=== PATIENT | male | born 1955 | race Caucasian/White ===

== ENCOUNTER 2021-12-09 11:43 | Outpatient (CLI) | payer MEDICARE ==
[2021-12-09 12:14] LABS: BASOPHILS # (AUTO) 0.1 10^3/uL (0.0-0.1); BASOPHILS % (AUTO) 1.5 %; EOSINOPHILS # (AUTO) 0.4 10^3/uL (0.0-0.7); EOSINOPHILS % (AUTO) 8.3 %; HCT - HEMATOCRIT 34.4 % (42.0-52.0); HGB - HEMOGLOBIN 12.1 g/dL (14.0-18.0); LYMPHOCYTES # (AUTO) 0.9 10^3/uL (1.5-3.5); LYMPHOCYTES % (AUTO) 17.7 %; MEAN CORPUSCULAR HGB CONC 35.2 g/dL (32.0-36.0); MEAN CORPUSCULAR VOLUME 99.4 fL (80.0-94.0); MEAN PLATELET VOLUME 9.5 fL (7.4-11.4); MONOCYTES # (AUTO) 0.4 10^3/uL (0.0-1.0); MONOCYTES % (AUTO) 8.3 %; NEUTROPHILS # (AUTO) 3.1 10^3/uL (1.5-6.6); NEUTROPHILS % (AUTO) 63.8 %; PLT - PLATELET COUNT 215 10^3/uL (130-450); RED BLOOD COUNT 3.46 10^6/uL (4.70-6.10); RED CELL DISTRIBUTION WIDTH 12.8 % (12.0-15.0); WHITE BLOOD COUNT 4.8 x10^3/uL (4.8-10.8)
[2021-12-09 12:27] LABS: ALBUMIN 4.6 g/dL (3.2-5.5); ALBUMIN/GLOBULIN RATIO 1.5 (1.0-2.2); ALKALINE PHOSPHATASE 71 IU/L (42-121); ALT ALANINE AMINOTRANSFERASE 33 IU/L (10-60); AST ASPARTATE AMINOTRANSFERASE 34 IU/L (10-42); BILIRUBIN,TOTAL 1.2 mg/dL (0.2-1.0); BUN - BLOOD UREA NITROGEN 34 mg/dL (6-20); CALCIUM 10.2 mg/dL (8.5-10.3); CARBON DIOXIDE - CO2 24 mmol/L (21-32); CHLORIDE 104 mmol/L (101-111); CHOL/HDL RATIO 2.9 (<5.0); CHOLESTEROL 186 mg/dL; GFR - MDRD 75 (>89); GLUCOSE 102 mg/dL (70-100); HDL CHOLESTEROL 65 mg/dL; LDL CHOLESTEROL,CALCULATED 89 mg/dL; LDL/HDL RATIO 1.4 (<3.6); POTASSIUM 4.4 mmol/L (3.5-5.0); SODIUM 139 mmol/L (135-145); TOTAL PROTEIN 7.7 g/dL (6.7-8.2); TRIGLYCERIDES 158 mg/dL; VLDL CHOLESTEROL 32 mg/dL
== END 2021-12-09 11:44 | disposition home or self-care (01) ==
LOC: LAB 11:43
PROVIDERS: ATTEND Hospitalist
DX: I10 Essential (primary) hypertension (principal); E78.2 Mixed hyperlipidemia; Z85.46 Personal history of malignant neoplasm of prostate
CPT/HCPCS: 36415; 80053; 80061; 83721; 84153; 85025

== ENCOUNTER 2023-09-30 08:17 | Outpatient (CLI) | payer MEDICARE ==
[2023-09-30 08:35] LABS: BASOPHILS % (AUTO) 0.7 %; EOSINOPHILS % (AUTO) 0.2 %; HCT - HEMATOCRIT 31.7 % (42.0-52.0); HGB - HEMOGLOBIN 10.7 g/dL (14.0-18.0); LYMPHOCYTES # (AUTO) 0.9 10^3/uL (1.5-3.5); LYMPHOCYTES % (AUTO) 21.4 %; MEAN CORPUSCULAR HEMOGLOBIN 36.1 pg (27.0-31.0); MEAN CORPUSCULAR HGB CONC 33.8 g/dL (32.0-36.0); MEAN CORPUSCULAR VOLUME 107.1 fL (80.0-94.0); MEAN PLATELET VOLUME 9.8 fL (7.4-11.4); MONOCYTES # (AUTO) 0.3 10^3/uL (0.0-1.0); MONOCYTES % (AUTO) 6.7 %; NEUTROPHILS # (AUTO) 2.8 10^3/uL (1.5-6.6); NEUTROPHILS % (AUTO) 69.8 %; PLT - PLATELET COUNT 257 10^3/uL (130-450); RED BLOOD COUNT 2.96 10^6/uL (4.70-6.10); RED CELL DISTRIBUTION WIDTH 14.1 % (12.0-15.0)
[2023-09-30 08:44] LABS: ALBUMIN/GLOBULIN RATIO 1.2 (1.0-2.2); CALCIUM 9.7 mg/dL (8.5-10.3); CREATININE 1.3 mg/dL (0.6-1.3); POTASSIUM 3.9 mmol/L (3.5-4.5); TOTAL PROTEIN 7.3 g/dL (6.4-8.9)
[2023-09-30 09:00] LABS: MAGNESIUM 0.9 mg/dL (1.7-2.3); THYROID STIMULATING HORMONE 2.81 uIU/mL (0.34-5.60)
== END 2023-09-30 08:18 | disposition home or self-care (01) ==
LOC: LAB 08:17
PROVIDERS: ATTEND Nurse Practitioner
DX: R68.83 Chills (without fever) (principal)
CPT/HCPCS: 36415; 80053; 83735; 84439; 84443; 84481; 85025

== ENCOUNTER 2023-09-30 09:39 | Emergency (ER) | payer MEDICARE ==
--- NOTE | 2023-09-30 11:44 | ED Physician Documentation ---
History of Present Illness - Stated complaint Stated Complaint: LOW MAGNESIUM - Chief complaint Chief Complaint: General - History obtained from History obtained from: Patient, Family - Additonal information Additional information: He has a history of hypertension and gout. He was seen in the clinic yesterday. His symptoms necessitating that visit are quite nonspecific. He has just been feeling off for the last few days in the middle night will wake up with shaking chills. He had 1 loose stool last night but no overt diarrhea. No fevers. No cough. They did labs and his magnesium level 0.9 and he was referred here. he has a history of prostate cancer with prostatectomy about 5 years ago. He does not take diuretics. No GI fluid losses. PD PAST MEDICAL HISTORY - Past Medical History Past Medical History: Yes Cardiovascular: Hypertension, High cholesterol Other Past Medical History: gout - Past Surgical History Ortho: Other - Present Medications Home Medications: Ambulatory Orders Medication Instructions Recorded Confirmed Amoxicillin 1,000 mg PO BID #20 cap 09/30/23 Azithromycin [Zithromax] 1 tab PO DAILY #4 tab 09/30/23 - Allergies Allergies/Adverse Reactions: Allergies Allergy/AdvReac Type Severity Reaction Status Date / Time No Known Drug Allergies Allergy Verified 09/30/23 09:57 - Social History Does the pt smoke?: No Smoking Status: Never smoker Does the pt drink ETOH?: Yes ETOH Use: Liquor Does the pt have substance abuse?: No - Immunizations Immunizations are current?: Yes PD ED PE NORMAL - Vitals Vital signs reviewed: Yes - General General: Alert and oriented X 3, No acute distress - Neck Neck: Supple, no meningeal sign - Cardiac Cardiac: RRR, No murmur - Respiratory Respiratory: No respiratory distress, Clear bilaterally - Abdomen Abdomen: Normal bowel sounds, Soft, Non tender - Derm Derm: Normal color, Warm and dry - Extremities Extremities: No edema, No calf tenderness / cord - Neuro Neuro: Alert and oriented X 3 Eye Opening: Spontaneous Motor: Obeys Commands Verbal: Oriented GCS Score: 15 Results - Vitals Vitals: Vital Signs - 24 hr 09/30/23 09/30/23 09/30/23 09:57 11:38 13:06 Temperature 36.5 C Heart Rate 88 79 74 Respiratory 16 24 18 Rate Blood Pressure 103/64 116/75 102/67 O2 Saturation 96 99 97 Oxygen O2 Source Room air - Labs Labs: Laboratory Tests 09/30/23 09/30/23 12:00 13:05 Urine Color YELLOW Urine Clarity CLEAR Urine pH 5.5 Ur Specific [place] 1.010 Urine Protein NEGATIVE Urine Glucose (UA) NEGATIVE Urine Ketones NEGATIVE Urine Occult Blood NEGATIVE Urine Nitrite NEGATIVE Urine Bilirubin NEGATIVE Urine Urobilinogen 0.2 (NORMAL) Ur Leukocyte Esterase NEGATIVE Ur Microscopic Review NOT INDICATED Urine Culture Comments NOT INDICATED Nasal Adenovirus (PCR) NOT DETECTED Nasal B. parapertussis DNA (PCR) NOT DETECTED Nasal Coronavir 229E PCR NOT DETECTED Nasal Coronavir HKU1 PCR NOT DETECTED Nasal Coronavir NL63 PCR NOT DETECTED Nasal Coronavir OC43 PCR NOT DETECTED Nasal Enterovir/Rhinovir PCR NOT DETECTED Nasal Influenza B PCR NOT DETECTED Nasal Influenza A PCR NOT DETECTED Nasal Parainfluen 1 PCR NOT DETECTED Nasal Parainfluen 2 PCR NOT DETECTED Nasal Parainfluen 3 PCR NOT DETECTED Nasal Parainfluen 4 PCR NOT DETECTED Nasal RSV (PCR) NOT DETECTED Nasal B.pertussis DNA PCR NOT DETECTED Nasal C.pneumoniae (PCR) NOT DETECTED Robert Human Metapneumo PCR NOT DETECTED Nasal M.pneumoniae (PCR) NOT DETECTED Nasal SARS-CoV-2 (PCR) NOT DETECTED - Rads (name of study) Single view chest x-ray demonstrates patchy right-sided pneumonia, could be viral or bacterial Relevant Findings:: Final report received, EMP independent interpretation of test PD Medical Decision Making - ED course ED course: He presents with outpatient labs showing hypomagnesemia and he otherwise has nonspecific symptoms. The remainder of his outpatient labs demonstrated lowish white count and we did a chest x-ray that demonstrated a right-sided pneumonia. Given the low white count this is probably viral but since his [employer] res piratory panel was negative will treat with antibiotics and advise close recheck of magnesium level as well as repeat radiography. Departure - Departure Disposition: Home, Self Care Clinical Impression: Hypomagnesemia Pneumonia Qualifiers: Laterality: right Lung location: unspecified part of lung Condition: Good Record reviewed to determine appropriate education?: Yes Instructions: Pneumonia Dc, Hypomagnesemia Dc Prescriptions: Amoxicillin 1,000 mg PO BID #20 cap Azithromycin [Zithromax] 1 tab PO DAILY #4 tab Comments: I sent your prescriptions electronically [facility] [address] [address] [facility] [place] We found you to have a patchy right-sided pneumonia in addition to the low magnesium level. Your [employer] respiratory panel was negative for identifiable viruses and as such I am putting you on antibiotics. You should have a repeat magnesium level done probably on Tuesday to be arranged either through your primary care office or the walk-in clinic in [place]. Return for new or worsening symptoms. You should does have a repeat chest x-ray in a few weeks. Forms: PCP List
--- NOTE | 2023-09-30 12:07 | XRAY Report ---
PROCEDURE: Chest 1V INDICATIONS: chills TECHNIQUE: One view of the chest was acquired. COMPARISON: None. FINDINGS: Surgical changes and devices: None. Lungs and pleura: No pleural effusions or pneumothorax. Patchy right-sided infiltrate, possibly inte rstitial in nature. Mediastinum: Mediastinal contours appear normal. Heart size is normal. Bones and chest wall: No suspicious bony lesions. Overlying soft tissues appear unremarkable. IMPRESSION: Patchy right-sided pneumonia. Consider viral versus bacterial etiologies. Progress films are recommended until clear. Reviewed by: Bryan Scott MD on 09/30/2023 12:05 PM PDT Approved by: Bryan Scott MD on 09/30/2023 12:05 PM PDT Station ID: [id number]
[2023-09-30] MEDS: MAGNESIUM SULFATE 2 GRAM 2 GM/50 ML BAG IV ONE ×2 (12:08→13:05)
[2023-09-30 12:59] LABS: B. PARAPERTUSSIS- RESP PCR PAN NOT DETECTED; B. PERTUSSIS- RESP PCR PANEL NOT DETECTED; C. PNEUMONIAE- RESP PCR PANEL NOT DETECTED; CORONAVIRUS 229E-RESP PCR NOT DETECTED; CORONAVIRUS HKU1-RESP PCR NOT DETECTED; CORONAVIRUS NL63-RESP PCR NOT DETECTED; CORONAVIRUS OC43-RESP PCR NOT DETECTED; HUMAN METAPNEUMOVIRUS NOT DETECTED; INFLUENZA A- RESP PCR PANEL NOT DETECTED; INFLUENZA B - RESP PCR PANEL NOT DETECTED; M. PNEUMONIAE- RESP PCR PANEL NOT DETECTED; PARAINFLUENZA VIRUS 1 NOT DETECTED; PARAINFLUENZA VIRUS 2 NOT DETECTED; PARAINFLUENZA VIRUS 3 NOT DETECTED; PARAINFLUENZA VIRUS 4 NOT DETECTED; RHINOVIRUS/ENTEROVIRUS NOT DETECTED; RSV- RESP PCR PANEL NOT DETECTED; SARS-CoV-2 -RESP PCR PANEL NOT DETECTED
[2023-09-30 13:10] LABS: BILIRUBIN,URINE NEGATIVE (NEGATIVE); CLARITY,URINE CLEAR (CLEAR); GLUCOSE, URINE (UA) NEGATIVE (NEGATIVE); KETONES,URINE (UA) NEGATIVE (NEGATIVE); LEUKOCYTE ESTERASE, URINE NEGATIVE (NEGATIVE); NITRITE,URINE NEGATIVE (NEGATIVE); OCCULT BLOOD,URINE NEGATIVE (NEGATIVE); PH,URINE 5.5 PH (5.0-7.5); PROTEIN,URINE NEGATIVE (NEGATIVE); UROBILINOGEN,URINE 0.2 (NORMAL) E.U./dL (NORMAL)
[2023-09-30] MEDS: AZITHROMYCIN 250 MG TABLET PO STA (13:54)
[2023-09-30] MEDS: AMOXICILLIN 250 MG CAPSULE PO STA (13:54)
[2023-09-30 14:32] VITALS: BP 111/80; O2SAT 98
== END 2023-09-30 14:22 | disposition home or self-care (01) ==
LOC: ED 09:39
DX: J18.9 Pneumonia, unspecified organism (principal); E83.42 Hypomagnesemia; R68.83 Chills (without fever)
CPT/HCPCS: 36415; 71045; 80053; 81003; 83735; 84439; 84443; 84481; 85025; 87633; 96365; 96366; 96368; 99284; A9270; 81001; 87086

== ENCOUNTER 2023-10-04 08:54 | Outpatient (CLI) | payer MEDICARE | END 2023-10-04 08:55 | disposition home or self-care (01) | LOC: LAB 08:54 | PROVIDERS: ATTEND Nurse Practitioner | DX: R68.83 Chills (without fever) (principal) | CPT/HCPCS: 36415; 83735 ==

== ENCOUNTER 2023-10-12 12:53 | Outpatient (CLI) | payer MEDICARE ==
[2023-10-12 13:08] LABS: BASOPHILS % (AUTO) 1.2 %; EOSINOPHILS % (AUTO) 1.5 %; HCT - HEMATOCRIT 36.7 % (42.0-52.0); HGB - HEMOGLOBIN 11.9 g/dL (14.0-18.0); LYMPHOCYTES % (AUTO) 25.4 %; MEAN CORPUSCULAR HEMOGLOBIN 35.3 pg (27.0-31.0); MEAN CORPUSCULAR HGB CONC 32.4 g/dL (32.0-36.0); MEAN CORPUSCULAR VOLUME 108.9 fL (80.0-94.0); MEAN PLATELET VOLUME 9.7 fL (7.4-11.4); MONOCYTES % (AUTO) 8.1 %; NEUTROPHILS % (AUTO) 56.2 %; PLT - PLATELET COUNT 569 10^3/uL (130-450); RED BLOOD COUNT 3.37 10^6/uL (4.70-6.10); RED CELL DISTRIBUTION WIDTH 14.2 % (12.0-15.0); WHITE BLOOD COUNT 9.2 x10^3/uL (4.8-10.8)
[2023-10-12 13:14] LABS: SLIDE REVIEW? Indicated
[2023-10-12 13:40] LABS: FERRITIN 1405.3 ng/mL (23.9-336.2)
[2023-10-12 13:42] LABS: ABNORMAL LYMPHS % (MANUAL) 0 %
[2023-10-12 13:45] LABS: BAND NEUTROPHILS % (MANUAL) 6 %; DIFFERENTIAL COMMENT MANUAL DIFFERENTIAL; LYMPHOCYTES # (MANUAL) 2.2 10^3/uL (1.5-3.5); LYMPHOCYTES % (MANUAL) 18 %; MONOCYTES # (MANUAL) 0.7 10^3/uL (0.0-1.0); MYELOCYTES % (MANUAL) 2 %; NEUTROPHILS # (MANUAL) 6.1 10^3/uL (1.5-6.6); RBC MORPHOLOGY (MULTIPLE) 1+ ANISOCYTOSIS (NORMAL); REACTIVE LYMPHS % (MANUAL) 6 %
== END 2023-10-12 12:54 | disposition home or self-care (01) ==
LOC: LAB 12:53
DX: F10.10 Alcohol abuse, uncomplicated (principal); D53.9 Nutritional anemia, unspecified; R53.83 Other fatigue
CPT/HCPCS: 36415; 82150; 82607; 82728; 82746; 83540; 83690; 84466; 85025

== ENCOUNTER 2023-10-17 20:36 | Outpatient (CLI) | payer MEDICARE ==
--- NOTE | 2023-10-18 17:19 | Ultrasound Report ---
PROCEDURE: Abdomen Complete INDICATIONS: ELEVATED LFT'S, FATIGUE, HX OF PROSTATE CA TECHNIQUE: Real-time scanning was performed of the abdominal and retroperitoneal organs, with image documentatio n. COMPARISON: None. FINDINGS: Liver: Liver is normal in size and heterogeneous in echotexture. Liver parenchyma is diffusely echog enic. Main portal vein is patent with hepatopedal flow. Gallbladder: Sludge and stones. Wall thickness is normal measuring 2 mm. No pericholecystic fluid. Biliary ducts: Intrahepatic bile ducts are non-dilated. Extrahepatic bile duct caliber measures 6.6 mm. Normal is 6-7 mm or less in diameter, or 10 mm or less post-cholecystectomy. Pancreas: Visualized portions of the pancreas are sonographically normal. Spleen: Spleen is mildly enlarged and homogeneous in echotexture measuring 12.7 x 4.9 x 11.7 cm. Kidneys: Kidneys are normal in size and echotexture. Right kidney measures 11 cm long; left kidney measures 11.9 cm long. No hydronephrosis bilaterally. Query a nonobstructive left-sided nephrolith me asuring 4 mm. No solid masses. No complex renal cystic lesions which require follow-up. Aorta: Visualized aorta is nonaneurysmal Proximal abdominal aorta is ectatic measuring 2.9 cm. Iliacs: Proximal common iliac arteries are normal in caliber at less than 2.5 cm. IVC: Intrahepatic inferior vena cava is patent. Miscellaneous: No free abdominal fluid. IMPRESSION: 1.Liver is heterogeneous and diffusely echogenic which may be seen in the setting of parenchymal dise ase such as steatosis/cirrhosis. 2.Cholelithiasis and sludge with no sonographic evidence of acute cholecystitis. 3.Mild splenomegaly measuring 12.7 x 4.9 x 11.7 cm. 4.Proximal abdominal aorta is ectatic measuring 2.9 cm. Recommend repeat imaging in 5 years. Reviewed by: Kamlesh Mclain MD on 10/18/2023 5:18 PM PDT Approved by: Kamlesh Mclain MD on 10/18/2023 5:18 PM PDT Station ID: [id number]
== END 2023-10-17 20:37 | disposition home or self-care (01) ==
LOC: DI 20:36
DX: K80.20 Calculus of gallbladder without cholecystitis without obstruction (principal); R16.1 Splenomegaly, not elsewhere classified; I77.811 Abdominal aortic ectasia

== ENCOUNTER 2023-10-19 13:22 | Outpatient (CLI) | payer MEDICARE ==
--- NOTE | 2023-10-19 15:00 | XRAY Report ---
PROCEDURE: Chest 2V INDICATIONS: PNEUMONIA TECHNIQUE: 2 views of the chest were acquired. COMPARISON: Single view chest 09/30/2023. FINDINGS: Surgical changes and devices: None. Lungs and pleura: No pleural effusions or pneumothorax. Lungs are little if any changed considering differences in technique and reduced inspiratory volume on the prior examination. There is mild inte rstitial prominence again noted, likely chronic by appearance. Mediastinum: Mediastinal contours appear normal. Heart size is normal. Bones and chest wall: No suspicious bony lesions. Overlying soft tissues appear unremarkable. IMPRESSION: No acute cardiopulmonary process. Mild chronic interstitial prominence bilaterally, without definite change considering differences in the inspiratory volume. No focal pneumonia found. Reviewed by: Yassine Ann MD on 10/19/2023 2:59 PM PDT Approved by: Yassine Ann MD on 10/19/2023 2:59 PM PDT Station ID: [id number]
== END 2023-10-19 13:23 | disposition home or self-care (01) ==
LOC: DI 13:22
DX: J18.9 Pneumonia, unspecified organism (principal)

== ENCOUNTER 2023-10-29 09:17 | Outpatient (CLI) | payer MEDICARE ==
[2023-10-30 05:09] LABS: HBsAG SCREEN Negative (Negative); HEPATITIS B SURFACE AB QUAL Non Reactive (.)
== END 2023-10-29 09:18 | disposition home or self-care (01) ==
LOC: LAB 09:17
DX: F10.10 Alcohol abuse, uncomplicated (principal); R53.83 Other fatigue
CPT/HCPCS: 86704; 86706; 86709; 87340; 87350; 87522